=== PATIENT | male | born 1980 | race Caucasian/White ===

== ENCOUNTER 2016-11-03 23:23 | Emergency (ER) | payer OTHER ==
[~2016-11-03] VITALS: Ht 188 cm; Wt 123.6 kg
[~2016-11-03 23:23] MED LIST: AMOXICILLIN500 MG PO; CITALOPRAM HBR20 MG PO; GABAPENTIN100 MG PO; NAPROSYN500 MG PO; PEN-VEE K,VEET500 MG PO; ULTRAM50 MG PO
[2016-11-04 00:14] LABS: HEMATOCRIT 44.7 % (38.0-50.0); MCH 25.3 PG (29.0-34.0); MCHC 32.9 G/DL (30.0-36.0); MCV 77.1 FL (86-99); PLATELET COUNT 284 K/uL (156-360); RBC DIS.WIDTH-CV 15.2 % (11.8-14.6); RBC DIS.WIDTH-SD 41.7 % (39-53); WHITE BLOOD COUNT 10.2 K/uL (4.1-10.2)
[2016-11-04 00:22] LABS: CHLORIDE 106 mEq/L (99-109); POTASSIUM 3.7 mEq/L (3.7-5.4); SODIUM 138 mEq/L (136-147)
[2016-11-04 00:24] LABS: GLUCOSE 108 mg/dL (70-99)
[2016-11-04 00:25] LABS: ANION GAP 11 MEQ/L (2-14)
[2016-11-04 00:27] LABS: SERUM ETHYL ALCOHOL < 10 mg/dL
[2016-11-04 00:28] LABS: GFR ESTIMATE (CALCULATED) > 59 mL/min/
[2016-11-04 00:29] LABS: UREA NITROGEN (BUN) 12 mg/dL (9-23)
[2016-11-04 01:01] LABS: COCAINE NEGATIVE (150 ng/mL); PHENCYCLIDINE NEGATIVE (25 ng/mL); THC CANNABINOIDS PRESUMPTIVE POSITIVE (50 ng/mL)
[2016-11-04 01:02] LABS: ADD MEDTOX COMMENT Y; AMPHETAMINE NEGATIVE (500 ng/mL); BARBITURATES NEGATIVE (200 ng/mL); BENZODIAZEPINES NEGATIVE (150 ng/mL); INTERNAL CONTROLS VALID? YES; METHADONE PRESUMPTIVE POSITIVE (200 ng/mL); METHAMPHETAMINE NEGATIVE (500 ng/mL); OPIATES (MORPHINE) NEGATIVE (100 ng/mL); OXYCODONE NEGATIVE (100 ng/mL); PROPOXYPHENE NEGATIVE (300 ng/mL); TRICYCLIC ANTIDEPRESSANTS NEGATIVE (300 ng/mL)
[2016-11-04 02:51] VITALS: BP 133/88
== END 2016-11-04 02:52 | disposition home or self-care (01) ==
LOC: EME 23:23
DX: F41.1 Generalized anxiety disorder (principal); F11.10 Opioid abuse, uncomplicated; F12.129 Cannabis abuse with intoxication, unspecified; F41.0 Panic disorder [episodic paroxysmal anxiety]; F33.2 Major depressive disorder, recurrent severe without psychotic features
CPT/HCPCS: 80048; 84999; 85027; 90839; 99281; 99283; G0480